=== PATIENT | male | born 1945 | race Caucasian/White ===

== ENCOUNTER → 2017-04-17 | Outpatient (CLI) | payer OTHER ==
[~2017-04-17] VITALS: Ht 177.8 cm; Wt 120.2 kg
[~2017-04-17] MED LIST: LIPITOR10 MG PO; NABUMETONE 750750 M1 PO; OMEPRAZOLE 20 M20 M1 PO
--- NOTE | ~2017-04-17 | HPC ---
[facility] [address] [place] [address] PAIN MANAGEMENT CONSULTATION Name: JOSEPHINE HOLLAND [id number] Admission: 04/17/17 Attend Phys: Jatinder Monique DO Discharge: Date of : 43 Report #: [id number] THIS REPORT FOR: //name// CC: DIMAS Monique HISTORY OF PRESENT ILLNESS: The patient is a pleasant 71-year-old gentleman seen in consultation at the request of Dr. Castellon for evaluation of pain, neck and shoulder primarily manifest as tingling in his thumb and fingers. It is going on for greater than 6 weeks without antecedent trauma or overuse. He has tried Aleve ozxa-xhw-opaxorr, Aspercreme and with nominal efficacy. States symptoms have been continuous, periodic, aching and throbbing. Rates pain anywhere from 3-8 on a VAS. Denies specific weakness, but states he does have some trouble with grasping the right hand. REVIEW OF SYSTEMS: Complete review of systems attached to chart and gone over with the patient. He is , does not smoke or drink alcohol to excess. He has enjoyed remarkably good health, prior rotator cuff tear and repaired in 2006. Dyslipidemia for which he takes atorvastatin. Really takes no other medication. 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 Pain impact score is fairly low, actually scoring 9/70. PHYSICAL EXAMINATION: GENERAL: Reveals a 5 feet 10 inches, 265 pounds gentleman, BMI is elevated at 38 kilograms per meter squared. VITAL SIGNS: Blood pressure 128/57, pulse 60, respirations 16. NEUROLOGIC: Cranial nerves 2-12 are grossly intact. HEENT: Pupils equal, react to light and accommodation. Extraocular muscles are intact. NECK: Cervical range of motion is modestly limited. EXTREMITIES: Hand grasp on the right is slightly diminished compared to the left with thumb and opposition to the middle and ring finger. Tinel's is negative. Deep tendon reflexes modestly diminished biceps on the right compared to the left. HEART: Regular and rhythmical without murmur. LUNGS: Clear to auscultation. ABDOMEN: Shows an endomorphic build. MUSCULOSKELETAL: Gait is tandem. Lower extremity strength is preserved. DIAGNOSTIC STUDIES: Include MRI of the cervical spine from 03/08/2017 noting C5-C6 to have rbloqcds-mz-zttazs bilateral neural foraminal stenosis and C6-C7 to have igiuqlbv-fe-oghgdr neural foraminal stenosis with multilevel spondylosis. ASSESSMENT: Symptomatic cervical radiculopathy [place] [address] PAIN MANAGEMENT CONSULTATION Name: JOSEPHINE HOLLAND MAME Room #: REG [facility] Tammy.#: [id number] Admission: 04/17/17 Attend Phys: Jatinder Monique DO Discharge: Date of : 43 Report #: [id number] RECOMMENDATIONS: 1. Continue Aleve bnff-azd-wuzllwd. 2. We will seek authorization for cervical epidural injection under fluoroscopy. Thank you for allowing me to participate in the patient's care. We will keep you abreast of his progress. We will plan on moving forward with cervical epidural injection at next visit. <ELECTRONICALLY SIGNED> By: Jatinder Monique DO 04/19/17 0808 [id number] Jatinder Monique DO /nt
[2017-04-17 09:01] VITALS: BP 128/57
== END ==
LOC: PAIN 07:03
DX: M54.12 Radiculopathy, cervical region (principal)

== ENCOUNTER → 2017-05-09 | Outpatient (CLI) | payer OTHER | LOC: RAD 07:46 | DX: J18.9 Pneumonia, unspecified organism (principal) ==

== ENCOUNTER → 2017-05-15 | Outpatient (CLI) | payer OTHER | LOC: SLEEPLAB 07:51 | DX: G47.33 Obstructive sleep apnea (adult) (pediatric) (principal); R06.83 Snoring ==

== ENCOUNTER → 2017-05-15 | Outpatient (CLI) | payer OTHER | LOC: RAD 08:48 | DX: R91.8 Other nonspecific abnormal finding of lung field (principal); J18.9 Pneumonia, unspecified organism ==

== ENCOUNTER → 2017-05-29 | Outpatient (CLI) | payer OTHER ==
[~2017-05-29] VITALS: Ht 180.3 cm; Wt 123.8 kg
--- NOTE | ~2017-05-29 | HPC ---
[facility] [place] [address] [address] PAIN MANAGEMENT CONSULTATION Name: JOSEPHINE HOLLAND MAME Room #: REG [facility] Viktor#: [id number] Admission: 05/29/17 Attend Phys: Jatinder Monique DO Discharge: Date of : 43 Report #: [id number] THIS REPORT FOR: //name// CC: Juan Antonio Monique The patient is a pleasant 71-year-old gentleman, prior seen in consultation back in March, diagnosed with symptomatic cervical radiculopathy with ongoing paresthesia in his hands. He returns to the pain clinic today noting still has problems in the morning primarily with paresthesia in his hands, hands feel like they are "clubbed." It seems to improve somewhat with cervical range of motion. I started him on nabumetone 750 b.i.d. and this seems to be helpful. He also incidentally notes he has some chronic sciatic type symptoms, right greater than left pain exacerbated with standing and walking. This too is a little better with the Relafen. PHYSICAL EXAMINATION: Shows essentially unchanged from last visit though specifically regarding the lumbar radicular symptoms, gait is tandem, lower extremity strength is 4/5 to all muscle groups tested. Straight leg raise is negative at this point. Patellar Achilles reflexes are preserved. ASSESSMENT: Symptomatic cervical radiculopathy with ongoing paresthesia and lumbar radiculopathy by history. RECOMMENDATION: Proceed with epidural injection under fluoroscopy today (cervical epidural injection). Follow up in 3 weeks for reevaluation. PROCEDURE NOTE: Cervical epidural injection under fluoroscopy. PROCEDURE NOTE: After written and informed consent was obtained including risk of dural puncture, spinal cord trauma, paralysis and increased pain, the patient was taken to the fluoroscopy suite and placed in the prone position, with appropriate abdominal bolstering, neck was flexed, palms under the thighs. Skin was prepped with ChloraPrep. Sterile draping was applied. Skin wheal with 1% Xylocaine was raised. A 22-gauge 3-1/2 inch epidural Tuohy needle was placed via a midline approach at the C7-T1 interspace, advanced under biplanar fluoroscopy using continuous loss of resistance. With appropriate loss of resistance at the expected depth on lateral view, the glass loss of resistance syringe was disconnected. A low volume extension tubing was connected to the needle and a 5 mL syringe. Negative aspiration for cerebrospinal fluid or blood was noted. A 1 mL of Omnipaque was injected which showed spread within the epidural space on biplanar fluoroscopy. This was followed with 80 mg of triamcinolone plus 1 mL of 1.5% preservative Xylocaine. Needle was withdrawn to the interspinous ligament, 0.5 mL of Xylocaine was used to flush the needle. [address] [address] PAIN MANAGEMENT CONSULTATION Name: JOSEPHINE HOLLAND Room #: REG [facility] Viktor#: [id number] Admission: 05/29/17 Attend Phys: Jatinder Monique DO Discharge: Date of : 43 Report #: [id number] The needle was then completely withdrawn. The area was cleansed. Band-Aid was applied. The patient was allowed to move off the procedure table and ambulated to the recovery room, monitored for an appropriate period of time, discharged in good and stable condition. <ELECTRONICALLY SIGNED> By: Jatinder Monique DO 05/31/17 0811 [id number] [id number] Jatinder Monique DO /nt
[2017-05-29 11:01] VITALS: BP 124/89
== END | disposition home or self-care (01) ==
LOC: PAIN 04-21 10:47
DX: M54.12 Radiculopathy, cervical region (principal); M54.16 Radiculopathy, lumbar region; Z98.890 Other specified postprocedural states; G89.29 Other chronic pain; Z79.891 Long term (current) use of opiate analgesic; Z79.899 Other long term (current) drug therapy

== ENCOUNTER → 2017-09-21 | Outpatient (CLI) | payer OTHER ==
[~2017-09-21] VITALS: Ht 180.3 cm; Wt 120.2 kg
--- NOTE | ~2017-09-21 | HPC ---
[facility] [place] [address] [place] [address] PAIN MANAGEMENT CONSULTATION Name: JOSEPHINE HOLLAND MAME [facility] [id number] Admission: 09/21/17 Attend Phys: Jatinder Monique DO Discharge: Date of : 43 Report #: [id number] THIS REPORT FOR: //name// CC: Juan Antonio Monique The patient is a pleasant 71-year-old gentleman prior seen in consultation on 05/29/2017. Diagnosed with cervical radicular symptoms at that time, given a single cervical epidural injection with overall improvement of paresthesia, bilateral hands. The patient had referred to some chronic sciatic symptoms, right greater than left at that time, but was somewhat lost to follow up. He returns to pain clinic today, I am pleased to note that his cervical radicular symptoms are dramatically improved following the cervical epidural injection. He does, however, complain of ongoing numbness, burning in his right lateral thigh, exacerbated with activity. Aleve helps nominally. Rates pain a 5 on a VAS. Denies any myelopathic symptoms. PHYSICAL EXAMINATION: Shows a 71-year-old gentleman, BMI is 37 kilograms per meter squared. Vital signs stable as noted in the EMR. Rises from chair using armrest. He does have a modestly antalgic gait. Right hip flexion strength is discernibly less than the left, perhaps 3-4/5, all other muscle groups are about 5/5. Right patellar reflex is diminished 1/4 versus 2/4 for the left. Achilles reflexes are symmetric. Straight leg raise is equivocally positive. Diffuse tenderness across the low back. No discrete trigger points noted. Again, the only diagnostic studies available are the cervical spine images from 03/2017. He did have multilevel cervical spondylosis. I can assume he has similar spondylitic changes in the lumbar spine. ASSESSMENT: 1. Symptomatic lumbar radiculopathy by clinical exam and history, classic right L3 radicular pain pattern. 2. Cervical radiculopathy by history, symptoms dramatically improved following 1 epidural injection. The patient has failed conservative therapies including range of motion, strength and nonsteroidal anti-inflammatory medications. RECOMMENDATIONS: 1. Continue Aleve OTC. 2. Epidural injection under fluoroscopy at L3-L4. 3. Followup simply as needed. PROCEDURE: Lumbar epidural injection under fluoroscopy. [address] [address] PAIN MANAGEMENT CONSULTATION Name: MAURICECANDYJOSEPHINEZayra VILCHIS Room #: REG [facility] Viktor#: [id number] Admission: 09/21/17 Attend Phys: Jatinder Monique DO Discharge: Date of : 43 Report #: [id number] PROCEDURE NOTE: After both written and informed consent to include risk of spinal cord damage, increased pain, weakness and dural puncture, the patient was taken to the fluoroscopy suite, placed in the prone position. After sterile prep and drape, a skin wheal with lidocaine was raised. A 22-gauge epidural Tuohy needle was inserted in the midline at L3-L4 with good loss to resistance. Negative aspiration for cerebrospinal fluid or blood was noted. Then 1 mL of Omnipaque under biplanar fluoroscopy showed good spread within the epidural space. This was followed with 80 mg of triamcinolone plus 1 mL of 1.5% preservative-free Xylocaine, 0.5 mL Xylocaine was then injected to flush the needle; it was removed. The patient was monitored for an appropriate period of time and discharged in good and stable condition. <ELECTRONICALLY SIGNED> By: Jatinder Monique DO 09/22/17 0656 [id number] Jatinder Monique DO /nt
[2017-09-21 08:45] VITALS: BP 126/81
== END | disposition home or self-care (01) ==
LOC: PAIN 07:01
DX: M54.16 Radiculopathy, lumbar region (principal); G89.29 Other chronic pain; M54.12 Radiculopathy, cervical region; Z79.891 Long term (current) use of opiate analgesic; Z79.899 Other long term (current) drug therapy

== ENCOUNTER → 2017-11-02 | Outpatient (CLI) | payer OTHER | LOC: CAT 13:37 | DX: R51 Headache (principal) ==

== ENCOUNTER → 2017-11-10 | Outpatient (CLI) | payer OTHER | LOC: CAT 11:51 | DX: J32.9 Chronic sinusitis, unspecified (principal); R51 Headache ==

== ENCOUNTER → 2018-09-17 | Outpatient (CLI) | payer OTHER | LOC: MRI 07:57 | DX: G93.9 Disorder of brain, unspecified (principal) ==

== ENCOUNTER → 2019-05-27 | Outpatient (CLI) | payer OTHER | LOC: CAT 08:53 | DX: Z13.6 Encounter for screening for cardiovascular disorders (principal); E78.00 Pure hypercholesterolemia, unspecified; I25.10 Atherosclerotic heart disease of native coronary artery without angina pectoris ==

== ENCOUNTER → 2020-05-07 | Outpatient (CLI) | payer OTHER ==
[~2020-05-07] VITALS: Ht 180.3 cm; Wt 125.5 kg
[~2020-05-07] MED LIST changes: +B COMPLEX1 EACH PO; +BIOFLEX TABLET1 EACH PO; +MULTI VITAMIN1 EACH PO; +RIZATRIPTAN10 MG PO
[2020-05-07 15:05] VITALS: BP 108/65
--- NOTE | 2020-05-07 15:19 | NUR ---
Pain Clinic Assessment: 1. History of Osteoarthritis: Not Applicable History of Rheumatoid Arthritis: Not Applicable 2. Height: 5 ft. 11 in. 180.3 cm. Weight: 276.6 lb. oz. 125.465 kg. Patient's BMI: 38.6 3. Vital Signs: BP: 108/65 Pulse: 68 Resp: 20 Temp: 02 Sat: 97 ECG Mon: 4. Pain Intensity: 2 5. Fall Risk: Dizziness: Y Needs help standing or walking: N Fallen in the last 3 months: N Fall risk comments: 6. Patient on Blood Thinner: None 7. History of Hypertension: N 8. Opioid Therapy greater than 6 weeks: N Opiate Contract Signed: 9. Risk Assessment Tool Provided: Opioid Risk Tool 10. Functional Assessment Tool: 11. Recreational Drug Use: Never Drug Type: Tobacco Use: Never Smoker Tobacco Type: Amount or Packs/day: How Many Years: Alcohol Use: Yes Frequency: Weekly Quant: 2
== END ==
LOC: PAIN 06:50
PROVIDERS: ATTEND Anesthesiology Pain Medicine
DX: M47.22 Other spondylosis with radiculopathy, cervical region (principal); E66.01 Morbid (severe) obesity due to excess calories; I10 Essential (primary) hypertension; G47.33 Obstructive sleep apnea (adult) (pediatric); G43.909 Migraine, unspecified, not intractable, without status migrainosus; Z79.891 Long term (current) use of opiate analgesic

== ENCOUNTER → 2020-05-14 | Outpatient (CLI) | payer OTHER ==
[~2020-05-14] VITALS: Ht 180.3 cm; Wt 124.7 kg
[2020-05-14 13:19] VITALS: BP 117/81
--- NOTE | 2020-05-14 13:37 | NUR ---
Pain Clinic Assessment: 1. History of Osteoarthritis: Not Applicable History of Rheumatoid Arthritis: Not Applicable 2. Height: 5 ft. 11 in. 180.3 cm. Weight: 275.0 lb. oz. 124.740 kg. Patient's BMI: 38.4 3. Vital Signs: BP: 117/81 Pulse: 86 Resp: 14 Temp: 02 Sat: 95 ECG Mon: 4. Pain Intensity: 2 5. Fall Risk: Dizziness: N Needs help standing or walking: N Fallen in the last 3 months: N Fall risk comments: 6. Patient on Blood Thinner: None 7. History of Hypertension: N 8. Opioid Therapy greater than 6 weeks: N Opiate Contract Signed: 9. Risk Assessment Tool Provided: Opioid Risk Tool 10. Functional Assessment Tool: 11. Recreational Drug Use: Never Drug Type: Tobacco Use: Never Smoker Tobacco Type: Amount or Packs/day: How Many Years: Alcohol Use: Yes Frequency: Weekly Quant: 2
== END | disposition home or self-care (01) ==
LOC: PAIN 06:57
PROVIDERS: ATTEND Anesthesiology Pain Medicine
DX: M54.12 Radiculopathy, cervical region (principal); M54.2 Cervicalgia; Z98.890 Other specified postprocedural states; Z79.899 Other long term (current) drug therapy

== ENCOUNTER → 2020-07-16 | Outpatient (CLI) | payer OTHER | LOC: CAT 09:12 | PROVIDERS: ATTEND Family Medicine | DX: R07.89 Other chest pain (principal); M47.814 Spondylosis without myelopathy or radiculopathy, thoracic region ==

== ENCOUNTER → 2020-10-26 | Outpatient (CLI) | payer OTHER | LOC: CAT 08:57 | PROVIDERS: ATTEND Internal Medicine | DX: Z13.6 Encounter for screening for cardiovascular disorders (principal) ==

== ENCOUNTER → 2020-11-03 | Outpatient (CLI) | payer OTHER | LOC: SJCVC 11:17 | PROVIDERS: ATTEND Internal Medicine | DX: R94.31 Abnormal electrocardiogram [ECG] [EKG] (principal); I44.4 Left anterior fascicular block; R93.1 Abnormal findings on diagnostic imaging of heart and coronary circulation; I71.2 Thoracic aortic aneurysm, without rupture; I10 Essential (primary) hypertension; E78.2 Mixed hyperlipidemia; G47.33 Obstructive sleep apnea (adult) (pediatric); E66.09 Other obesity due to excess calories; K21.9 Gastro-esophageal reflux disease without esophagitis; Z87.442 Personal history of urinary calculi; Z79.82 Long term (current) use of aspirin; Z79.899 Other long term (current) drug therapy; Z87.891 Personal history of nicotine dependence; Z82.49 Family history of ischemic heart disease and other diseases of the circulatory system ==

== ENCOUNTER → 2020-11-17 | Outpatient (CLI) | payer OTHER | LOC: SJCVCIMAG 07:12 | PROVIDERS: ATTEND Internal Medicine | DX: I49.3 Ventricular premature depolarization (principal); I49.5 Sick sinus syndrome; E78.5 Hyperlipidemia, unspecified ==

== ENCOUNTER → 2021-04-15 | Outpatient (CLI) | payer OTHER ==
[~2021-04-15] VITALS: Ht 180.3 cm; Wt 126.4 kg
[~2021-04-15] MED LIST changes: +ROSUVASTATIN CA10 MG PO
[2021-04-15 14:26] VITALS: BP 151/85
--- NOTE | 2021-04-15 14:37 | NUR ---
Pain Clinic Assessment: 1. History of Osteoarthritis: Not Applicable History of Rheumatoid Arthritis: Not Applicable 2. Height: 5 ft. 11 in. 180.3 cm. Weight: 278.6 lb. oz. 126.372 kg. Patient's BMI: 38.9 3. Vital Signs: BP: 151/85 Pulse: 60 Resp: 18 Temp: 02 Sat: 97 ECG Mon: 4. Pain Intensity: 1 5. Fall Risk: Dizziness: N Needs help standing or walking: N Fallen in the last 3 months: N Fall risk comments: 6. Patient on Blood Thinner: None 7. History of Hypertension: N 8. Opioid Therapy greater than 6 weeks: N Opiate Contract Signed: 9. Risk Assessment Tool Provided: Opioid Risk Tool 10. Functional Assessment Tool: 11. Recreational Drug Use: Never Drug Type: Tobacco Use: Never Smoker Tobacco Type: Amount or Packs/day: How Many Years: Alcohol Use: Yes Frequency: Weekly Quant: 1
== END ==
LOC: PAIN 10:58
PROVIDERS: ATTEND Anesthesiology Pain Medicine
DX: M54.12 Radiculopathy, cervical region (principal); R51.9 Headache, unspecified; Z91.048 Other nonmedicinal substance allergy status; Z79.899 Other long term (current) drug therapy

== ENCOUNTER → 2021-04-19 | Outpatient (CLI) | payer OTHER ==
[~2021-04-19] VITALS: Ht 180.3 cm; Wt 125.7 kg
[2021-04-19 16:07] VITALS: BP 143/86
--- NOTE | 2021-04-19 16:17 | NUR ---
Pain Clinic Assessment: 1. History of Osteoarthritis: Not Applicable History of Rheumatoid Arthritis: Not Applicable 2. Height: 5 ft. 11 in. 180.3 cm. Weight: 277.2 lb. oz. 125.737 kg. Patient's BMI: 38.7 3. Vital Signs: BP: 143/86 Pulse: 63 Resp: 16 Temp: 02 Sat: 96 ECG Mon: 4. Pain Intensity: 9 5. Fall Risk: Dizziness: N Needs help standing or walking: N Fallen in the last 3 months: N Fall risk comments: 6. Patient on Blood Thinner: None 7. History of Hypertension: N 8. Opioid Therapy greater than 6 weeks: N Opiate Contract Signed: 9. Risk Assessment Tool Provided: Opioid Risk Tool 10. Functional Assessment Tool: 11. Recreational Drug Use: Never Drug Type: Tobacco Use: Never Smoker Tobacco Type: Amount or Packs/day: How Many Years: Alcohol Use: Yes Frequency: Weekly Quant: 2 / WEEKLY
== END | disposition home or self-care (01) ==
LOC: PAIN 12:42
PROVIDERS: ATTEND Anesthesiology Pain Medicine
DX: M54.12 Radiculopathy, cervical region (principal); G44.86 Cervicogenic headache; Z98.890 Other specified postprocedural states; Z79.899 Other long term (current) drug therapy; Z79.891 Long term (current) use of opiate analgesic

== ENCOUNTER → 2021-05-20 | Outpatient (CLI) | payer OTHER | LOC: SJCVCIMAG 08:12 | PROVIDERS: ATTEND Internal Medicine | DX: I08.3 Combined rheumatic disorders of mitral, aortic and tricuspid valves (principal); R94.31 Abnormal electrocardiogram [ECG] [EKG]; I44.4 Left anterior fascicular block; R00.1 Bradycardia, unspecified; R93.1 Abnormal findings on diagnostic imaging of heart and coronary circulation; I10 Essential (primary) hypertension; I71.2 Thoracic aortic aneurysm, without rupture; E78.5 Hyperlipidemia, unspecified; G47.33 Obstructive sleep apnea (adult) (pediatric); M54.12 Radiculopathy, cervical region; K21.9 Gastro-esophageal reflux disease without esophagitis; Z87.891 Personal history of nicotine dependence; Z72.89 Other problems related to lifestyle; Z79.82 Long term (current) use of aspirin; Z79.899 Other long term (current) drug therapy; Z82.49 Family history of ischemic heart disease and other diseases of the circulatory system ==